=== PATIENT | male | born 2005 | race Caucasian/White ===

== ENCOUNTER 2023-12-01 20:35 | Emergency (ER) | payer OTHER, SELFPAY ==
[2023-12-01 21:32] VITALS: BP 152/92; PULSE 81; RESP 12; TEMP 36.3; O2SAT 98; BMI 27.6
--- NOTE | 2023-12-02 03:05 | ED.GENADULT ---
HPI - General Adult General Chief complaint: General Medical Stated complaint: body rash Time Seen by Provider: 12/02/23 02:08 Source: patient Mode of arrival: ambulatory Limitations: no limitations History of Present Illness HPI narrative: 16-year-old male presents to ED for 1 month of body rash on extremities, torso, and back. Patient is living on a friend couch he just met for the past month. Patient denies any lip swelling, tongue swelling, facial swelling, shortness of breath, or sensation of throat closing. Related Data Previous Rx's ?Medication ?Instructions ?Recorded permethrin 5 % topical cream 1 appl topical Q14D 2 doses #60 12/02/23 grams Allergies Allergy/AdvReac Type Severity Reaction Status Date / Time No Known Allergies Allergy Verified 12/01/23 21:35 Review of Systems Review of Systems: Itchy rash Yes all other systems are reviewed and are negative [facility] Social History Social History Smoked in Last 30 Days: No Use of substances other than those prescribed or required for medical reasons: No Advance Directives: No Advance Directives Information Provided: No Do you have a plan to hurt others: No Plan Physical Exam ED Vital Signs: Vital Signs - 24 hr 12/01/23 21:32 Temperature 97.3 F Pulse Rate 81 Respiratory Rate 12 Blood Pressure 152/92 H Pulse Oximetry 98 Oxygen Delivery Method Room Air BMI result Body Mass Index 27.6 Const General: cooperative, healthy appearing, comfortable, no acute distress, well developed, alert, awake and Physically active Orientation/consciousness: oriented to person, oriented to place, oriented to time and patient oriented x3 HENMT Head: Yes normal to inspection, Yes No palpable skull fracture present, Yes normocephalic and Yes atraumatic Eyes General: appearance normal, both eyes and all related structures Neck Neck: Yes normal visual inspection, Yes full ROM, Yes no lymphadenopathy, Yes no meningeal signs, Yes trachea midline, Yes supple, No anterior neck swelling and No tender Chest Chest palpation & inspection: normal inspection of the chest and normal palpation of entire chest wall Resp Effort & Inspection: normal respiratory effort and able to speak in complete sentences Auscultation: clear to auscultation bilaterally Cardio Jugular venous distension: no JVD Heart sounds: S1 normal heart sound present and S2 normal heart sound present GI Other: Positive for scabies rash on torso Inspection: Yes normal to inspection and No abdominal wall ecchymosis Palpation (GI): Soft to palpation, not firm, nontender, no guarding and not rigid General: No CVA tenderness and Yes no CVA tenderness Back/Spine/Pelvis Other: Positive for scabies rash Back: no CVA tenderness, No CVA tenderness and No back tenderness Skin Other: Positive for scabies rash on upper extremities, abdomen, chest, and back. Hands have scabies bite Neuro General: oriented to person, oriented to place, oriented to time, patient oriented x3, gait normal, tone normal, moves all extremities, Normal light touch and pain sensation, no meningeal signs, no focal motor deficits, CN's II-XI intact bilaterally and normal sensation to monofilament Extrem General: Yes normal to inspection, Yes full ROM and Yes capillary refill normal Psych Appearance: grossly normal, well kempt and not disheveled Medical Decision Making Medical Decision Making MDM Narrative: 17-year-old male brought for itchy rash for 1 month. History physical exam indicate scabies. Patient instructed on permethrin use. Patient instructed on worrisome signs and informed to return to the ED if he has them. Differential Diagnosis Differential Diagnoses: The differential diagnosis associated with the presentation includes (Allergic reaction, scabies, dermatitis, bedbugs) Admission/Observation Consideration of admission/observation: Escalation of care including admission/observation considered Independent Historian Clinical information obtained from an independent historian. History obtained from or confirmed by: Other (Patient) External Record Review External record reviewed: Other (prior viists) Discharge Plan Discharge Clinical Impression: Scabies Patient Disposition: Home, Self-Care Instructions: Scabies (ED) Additional Instructions: Recommend follow-up with your primary care provider. Be compliant with permethrin use. Return to the ED for any swelling of lips, tongue, shortness of breath, chest pain, worsening rash, fever, chills, sensation of throat closing, or any other concerning symptoms Prescriptions: New permethrin 5 % cream 1 appl topical Q14D Qty: 60 0RF Rx Instructions: apply second treatment 14 days after first treatment if live lice remain. Put on cream for 8-14 hours and then wash. If no improvement can repeat in the next 14 days. Referrals: [facility] [place] [facility] [Provider Group] (Scabies) Interventions: ED Discharge Assessment Last Done: 12/02/23 03:38 Discharge Date/Time: 12/02/23 03:39 Print Language: Latrice Carl[place]
[2023-12-02 03:15] VITALS: BP 132/69; PULSE 73; RESP 16; TEMP 36.6; O2SAT 100
[2023-12-02 03:38] VITALS: BP 132/69; PULSE 73; RESP 16; TEMP 36.6; O2SAT 100
== END 2023-12-02 03:39 | disposition home or self-care (01) ==
PROVIDERS: Emergency Provider Emergency Medicine
DX: B86 Scabies (principal)
CPT/HCPCS: 99283; 99284